=== PATIENT | male | born 1995 | race African-American/Black ===

== ENCOUNTER 2018-06-14 23:19 | Emergency (ER) | payer OTHER ==
--- NOTE | 2018-06-14 23:23 | PDOC ---
History of Present Illness - General History Source: Patient Exam Limitations: No Limitations - History of Present Illness Initial Comments: 06/14/18 23:46 The patient is a 22 year old male with no significant past medical history who presents to the ED s/p injury earlier today. The patient was at work at [employer] when he was washing glass dishes and a piece of glass broke in his hands and the edge of the glass cut his right thumb. Patient reports pain to his right thumb. Denies pain to other digits or to his hand. Patient states he received his tetanus shot last year. Denies focal numbness, weakness or tingling. Denies fever or chills. Denies any other symptoms. <Mich Laguna - Last Filed: 06/14/18 23:48> <Latanya Avelar - Last Filed: 06/15/18 04:18> - General Chief Complaint: Injury Stated Complaint: CUT RIGHT HAND AT WORK WITH GLASS Time Seen by Provider: 06/14/18 23:20 Past History <Mich Laguna - Last Filed: 06/14/18 23:48> <Latanya Avelar - Last Filed: 06/15/18 04:18> - Past Medical History Allergies/Adverse Reactions: Allergies Allergy/AdvReac Type Severity Reaction Status Date / Time No Known Allergies Allergy Verified 06/14/18 23:22 Home Medications: Ambulatory Orders Cephalexin Monohydrate [Keflex -] 500 mg PO Q8H #15 capsule 06/15/18 Review of Systems - Review of Systems Able to Perform ROS?: Yes Comments:: 06/14/18 23:47 CONSTITUTIONAL: Absent: fever, chills, diaphoresis, generalized weakness, malaise, loss of appetite HEENT: Absent: rhinorrhea, nasal congestion, throat pain, throat swelling, difficulty swallowing, mouth swelling, ear pain, eye pain, visual Changes CARDIOVASCULAR: Absent: chest pain, syncope, palpitations, irregular heart rate, lightheadedness , peripheral edema RESPIRATORY: Absent: cough, shortness of breath, dyspnea with exertion, orthopnea, wheezing, stridor, hemoptysis GASTROINTESTINAL: Absent: abdominal pain, abdominal distension, nausea, vomiting, diarrhea, constipation, melena, hematochezia GENITOURINARY: Absent: dysuria, frequency, urgency, hesitancy, hematuria, flank pain, genital pain MUSCULOSKELETAL: Absent: myalgia, arthralgia, joint swelling SKIN: + thumb injury Absent: rash, itching, pallor HEMATOLOGIC/IMMUNOLOGIC: Absent: easy bleeding, easy bruising, lymphadenopathy, frequent infections ENDOCRINE: Absent: unexplained weight gain, unexplained weight loss, heat intolerance, cold intolerance NEUROLOGIC: Absent: headache, focal weakness or paresthesias, dizziness, unsteady gait, seizure, mental status changes, bladder or bowel incontinence PSYCHIATRIC: Absent: anxiety, depression, suicidal or homicidal ideation, hallucinations. All Other Systems: Reviewed and Negative <Mich Laguna - Last Filed: 06/14/18 23:48> *Physical Exam - Vital Signs Last Vital Signs Temp Pulse Resp BP Pulse Ox 97.6 F 50 L 16 133/89 100 06/14/18 23:24 06/14/18 23:24 06/14/18 23:24 06/14/18 23:24 06/14/18 23:24 - Physical Exam Comments: 06/14/18 23:47 GENERAL: The patient is awake, alert, and fully oriented, in no acute distress. HEAD: Normal with no signs of trauma. EYES: Pupils equal, round and reactive to light, extraocular movements intact, sclera anicteric, conjunctiva clear with no pallor. ENT: Ears normal, nares patent, oropharynx clear without exudates. Moist mucous membranes. NECK: Normal range of motion, supple without lymphadenopathy, JVD, or masses. LUNGS: Breath sounds equal, clear to auscultation bilaterally. No wheeze/ crackles. HEART: Regular rate and rhythm, normal S1 and S2 without murmur or rub. ABDOMEN: Soft/nontender/nondistended. BS wnl. No guarding or rebound. No palpable masses. No hepatosplenomegaly. EXTREMITIES: Normal range of motion, no edema. No clubbing or cyanosis. No cords, erythema, or tenderness. NEUROLOGICAL: Cranial nerves II through XII grossly intact. Normal speech, normal gait. PSYCH: Normal mood, normal affect. SKIN: + 3 cm full thickness laceration of the dorsum of the right thumb at the IP joint, full flexion and extension reproducible in the thumb, no other injuries. Warm, Dry, normal turgor, no rashes noted. <Mich Laguna - Last Filed: 06/14/18 23:48> Procedures - Laceration/Wound Repair Right 1st digit Wound Length: 2.6 to 5.0 cm Wound Explored: clean Wound's Depth, Shape: linear Irrigated w/ Saline: Yes Betadine Prep: No (Hibiclens ethanol mixture) Anesthesia: 1% Lidocaine Amount of Anesthetic (ccs): 5 Wound Debrided: minimal Wound Repaired With: Sutures Suture Size/Type: 5:0, nylon Number of Sutures: 8 Layer Closure: No Sterile Dressing Applied: Yes Splint Applied: Yes Sling Applied: No Progress: Area of right thumb laceration prepped using a Hibiclens/ethanol solution and sterilely draped. Wound is thoroughly irrigated using 50 mL of sterile normal saline. No evidence of tendon or vascular damage. Wound closed primarily using 8 interrupted sutures of 4-0 nylon. Bacitracin applied followed by splint and sterile dressing/tube dressing Patient tolerated procedure well <Latanya Avelar - Last Filed: 06/15/18 04:18> Progress Note - Progress Note Progress Note: Patient presents with left thumb laceration sustained when a glass he was washing in kitchen at work broke and sharp edge of the glass cut the patient's thumb. No other injury sustained. Patient has distal thumb numbness but motor functioning is intact. Exam as noted. Procedure note as noted for primary closure of the wound. Patient will be discharged with follow-up with hand surgeon (Dr. Hartley) within the next 3-4 days. He will keep the splint in place and the wound as dry as possible during this time. <Latanya Avelar - Last Filed: 06/15/18 04:18> *DC/Admit/Observation/Transfer - Attestations Scribe Attestion: 06/14/18 23:47 Documentation prepared by Mich Laguna, acting as director medical writing for Latanya Avelar MD <Mich Laguna - Last Filed: 06/14/18 23:48> <Latanya Avelar - Last Filed: 06/15/18 04:18> Diagnosis at time of Disposition: Laceration of right thumb Qualifiers: Encounter type: initial encounter Damage to nail status: without damage Foreign body presence: without foreign body Qualified Code(s): S61.011A - Laceration without foreign body of right thumb without damage to nail, initial encounter - Discharge Dispostion Disposition: HOME Condition at time of disposition: Stable - Prescriptions Prescriptions: Cephalexin Monohydrate [Keflex -] 500 mg PO Q8H #15 capsule - Referrals Referrals: Brad Hartley MD [Staff Physician] - Call tomorrow - Patient Instructions Printed Discharge Instructions: How to Care for a Laceration After Repair Additional Instructions: keep original dressing in place, as dry as possible, for the next 2 days Elevate right hand at heart level or above for the next 2 days Keflex 500 mg 3 times a day for 5 days No work until seen by Dr. Hartley Call Dr. Hartley's office tomorrow to make an appointment within the next 2-3 days Return to ER if you have worsening pain/swelling in the area around the wound - Post Discharge Activity Forms/Work/School Notes: Back to Work
[2018-06-14 23:33] VITALS: BP 133/89; PULSE 50; TEMP 97.6; BMI 21.5
[2018-06-15] MEDS ORDERED: CEPHALEXIN MONOHYDRATE 500 MG CAPSULE (UD) ONE (00:54)
[2018-06-15] MEDS ORDERED: CEPHALEXIN MONOHYDRATE 500 MG CAPSULE (UD) PO ONE (00:57)
== END 2018-06-15 01:11 | disposition home or self-care (01) ==
LOC: FER 23:19
PROC: 0HQFXZZ Repair Right Hand Skin, External Approach (ICD-10-PCS; principal; 2018-06-14)
DX: S61.011A Laceration without foreign body of right thumb without damage to nail, initial encounter (principal); W25.XXXA Contact with sharp glass, initial encounter; Y93.G1 Activity, food preparation and clean up; Y92.511 Restaurant or cafe as the place of occurrence of the external cause; Y99.0 Civilian activity done for income or pay
CPT/HCPCS: 99281-25

== ENCOUNTER 2018-06-22 13:31 | Emergency (ER) | payer OTHER ==
[2018-06-22 13:40] VITALS: BP 123/84; PULSE 64; TEMP 98.8; BMI 20.9
--- NOTE | 2018-06-22 13:59 | PDOC ---
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 The fever no redness and swelling slight dehiscence to sutures Past History - Past Medical History Allergies/Adverse Reactions: Allergies Allergy/AdvReac Type Severity Reaction Status Date / Time No Known Allergies Allergy Verified 06/22/18 13:33 Home Medications: Ambulatory Orders Cephalexin Monohydrate [Keflex -] 500 mg PO Q8H #15 capsule 06/15/18 COPD: No Other medical history: DENIES - Immunization History Immunization Up to Date: Yes - Suicide/Smoking/Psychosocial Hx Smoking History: Never smoked Have you smoked in the past 12 months: No Information on smoking cessation initiated: No Hx Alcohol Use: No Drug/Substance Use Hx: Yes (MARIJUANA) Substance Use Type: Marijuana Review of Systems - Review of Systems Comments:: 06/22/18 14:09 ROS: A complete review of 10 out of 10 review of systems is taken and is negative apart from what is previously mentioned below and in the HPI. *Physical Exam - Vital Signs Last Vital Signs Temp Pulse Resp BP Pulse Ox 98.8 F 64 16 123/84 100 06/22/18 13:32 06/22/18 13:32 06/22/18 13:32 06/22/18 13:32 06/22/18 13:32 - Physical Exam Comments: 06/22/18 14:09 Vitals: Triage Vital signs reviewed General Appearance: no acute distress, well nourished well developed, Head: Atraumatic, Eyes: Pupils equal reactive round, extraocular movement intact Neck: Supple;No Nucal rigidity Extremities: Full range of motion to all extremities, no cyanosis, clubbing, or edema Skin: Warm and dry, no rashes or lesions, lacerationto right thumb with dehiscence mild, Steri-Strips placed Psych: normal mood, normal affect Medical Decision Making - Medical Decision Making 06/22/18 14:11 Slight dehiscence to thumb Steri-Strips placed Findings, the need to follow-up, strict return instructions discussed with patient. *DC/Admit/Observation/Transfer Diagnosis at time of Disposition: Laceration of right thumb Qualifiers: Encounter type: subsequent encounter Damage to nail status: without damage Foreign body presence: without foreign body Qualified Code(s): S61.011D - Laceration without foreign body of right thumb without damage to nail, subsequent encounter - Discharge Dispostion Disposition: HOME Condition at time of disposition: Stable Decision to Admit order: No - Referrals - Patient Instructions Printed Discharge Instructions: DI for Suture Removal Additional Instructions: Leave Steri-Strips in place if they come off replace them. Return to ED for any redness swelling signs of infection. The wound will now heal from the bottom up this may take up to a week. - Post Discharge Activity
== END 2018-06-22 14:17 | disposition home or self-care (01) ==
LOC: FER 13:31
DX: S61.011D Laceration without foreign body of right thumb without damage to nail, subsequent encounter (principal); X58.XXXD Exposure to other specified factors, subsequent encounter; Y93.89 Activity, other specified; Y92.9 Unspecified place or not applicable
CPT/HCPCS: 99281-25